=== PATIENT | male | born 1995 | race Caucasian/White ===

== ENCOUNTER 2018-01-21 19:14 | Inpatient (IN) | payer MEDICAID ==
[~2018-01-21] VITALS: Ht 177.8 cm; Wt 60.3 kg
[2018-01-21] MEDS ORDERED: BACITRACIN 0.9 GM PACKET OINTMENT TP ONE (21:30)
[2018-01-21 21:38] LABS: BASOPHILS % (AUTO) 0.4 % (0.0-2.0); HEMATOCRIT 45.8 % (41-53); HEMOGLOBIN 15.9 g/dL (13.5-17.5); LYMPHOCYTES # (AUTO) 2.7 K/uL (1.0-4.8); LYMPHOCYTES % (AUTO) 29.4 % (22.0-44.0); MEAN CORPUSCULAR HEMOGLOBIN 31.9 pg (26.0-34.0); MEAN CORPUSCULAR HGB CONC 34.7 G/dL (31.0-37.0); MEAN CORPUSCULAR VOLUME 92 fL (80-100); MONOCYTES # (AUTO) 0.5 K/uL (0.1-1.0); MONOCYTES % (AUTO) 5.9 % (2.0-9.0); NEUTROPHILS # (AUTO) 4.9 K/uL (1.8-7.7); NEUTROPHILS % (AUTO) 54.3 % (40.0-70.0); PLATELET COUNT (AUTO) 285 K/uL (150-450); RED BLOOD CELL COUNT(AUTO) 4.99 MIL/uL (4.50-5.90); RED CELL DISTRIBUTION WIDTH 12.5 % (11.5-14.5)
[2018-01-21] MEDS ORDERED: ZOLPIDEM TARTRATE 10 MG TABLET PO PRN (21:45)
[2018-01-21 21:46] LABS: ANION GAP 7 mmol/L (8-16); CALCIUM, TOTAL 8.9 mg/dL (8.8-10.5); CARBON DIOXIDE 27 mmol/L (22-29); CHLORIDE 103 mmol/L (98-107); CREATININE 0.75 mg/dL (0.60-1.30); GLOMERULAR FILTR. RATE CALC > 60 mL/min (>60); GLUCOSE,RANDOM 95 mg/dL (70-110); POTASSIUM 3.9 mmol/L (3.5-5.1); SODIUM SERUM 137 mmol/L (136-145); UREA NITROGEN, BLOOD 14 mg/dL (7-18)
[2018-01-21 21:52] LABS: ALANINE AMINOTRANSFERASE 40 U/L (12-78); ALBUMIN 4.4 g/dL (3.4-5.0); ALKALINE PHOSPHATASE 121 U/L (46-116); ASPARTATE AMINOTRANSFERASE 23 U/L (15-37); BILIRUBIN,TOTAL 0.9 mg/dL (0.1-1.0); TOTAL PROTEIN, SERUM 7.4 g/dL (6.4-8.2)
[2018-01-21 22:12] LABS: CHOL/HDL RATIO 3.1 (4.2-7.3); CHOLESTEROL 147 mg/dL (131-200); FREE T4 (FREE THYROXINE) 0.82 ng/dL (0.76-1.46); HDL CHOLESTEROL 47 mg/dL (40-60); LDL CHOL (CALC.) 83 mg/dL (0-130); THYROID STIMULATING HORMONE 1.17 uIU/mL (0.36-3.74); TRIGLYCERIDES 84 mg/dL (15-150)
[2018-01-22 02:50] VITALS: BP 143/92
[2018-01-22 08:06] VITALS: BP 130/88
[2018-01-22] MEDS: BACITRACIN 28.4 GM OINTMENT TP SCH ×2 (09:18→17:08)
[2018-01-22] MEDS: HALOPERIDOL 5 MG TABLET PO PRN ×2 (09:55→17:58)
[2018-01-22] MEDS: LORazepam 2 MG TABLET PO PRN ×2 (09:55→17:58)
[2018-01-22] MEDS ORDERED: MAG HYDROX/AL HYDROX/SIMETH ES 30 ML SUSPENSION UDCUP PO PRN (11:30)
[2018-01-22] MEDS ORDERED: MAGNESIUM HYDROXIDE SUSPENSION 30 ML UDCUP PO PRN (11:30)
[2018-01-22] MEDS ORDERED: PETROLATUM,WHITE 71 GM JELLY TP PRN (11:30)
[2018-01-22] MEDS ORDERED: DOCUSATE SODIUM 100 MG CAPSULE PO PRN (11:30)
[2018-01-22] MEDS ORDERED: ONDANSETRON HCL 4 MG TABLET PO PRN (11:30)
[2018-01-22] MEDS ORDERED: ALBUTEROL SULFATE HFA 90 MCG/PUFF 8 GM INHALER IH PRN (11:30)
[2018-01-22] MEDS ORDERED: LOPERAMIDE HCL 2 MG CAPSULE PO PRN (11:30)
[2018-01-22] MEDS ORDERED: ACETAMINOPHEN 325 MG TABLET PO PRN (11:30)
[2018-01-22] MEDS ORDERED: CloNIDine HCL 0.1 MG TABLET PO PRN (11:30)
[2018-01-22] MEDS: IBUPROFEN 400 MG TABLET PO PRN (14:00)
[2018-01-22 16:00] VITALS: BP 119/69
[2018-01-22] MEDS ORDERED: NICOTINE 14 MG/24 HOUR PATCH TD ONE (18:00)
[2018-01-22] MEDS: MIRTAZAPINE 15 MG TABLET PO SCH (20:45)
[2018-01-23 06:17] VITALS: BP 116/83
[2018-01-23] MEDS: BACITRACIN 28.4 GM OINTMENT TP SCH ×2 (09:41→17:16)
[2018-01-23] MEDS: NICOTINE 14 MG/24 HOUR PATCH TD SCH (09:41)
[2018-01-23 10:52] VITALS: BP 132/92
[2018-01-23] MEDS: LORazepam 2 MG TABLET PO PRN (10:53)
[2018-01-23] MEDS: HALOPERIDOL 5 MG TABLET PO PRN (10:53)
[2018-01-23 16:00] VITALS: BP 134/84
[2018-01-23] MEDS: MIRTAZAPINE 15 MG TABLET PO SCH (20:28)
[2018-01-23 20:29] VITALS: BP 127/89
[2018-01-23] MEDS: IBUPROFEN 400 MG TABLET PO PRN (20:29)
[2018-01-24 05:10] VITALS: BP 125/80
[2018-01-24] MEDS: IBUPROFEN 400 MG TABLET PO PRN ×2 (05:14→12:50)
[2018-01-24] MEDS: LORazepam 2 MG TABLET PO PRN ×4 (05:14→21:49)
[2018-01-24 08:21] VITALS: BP 127/75
[2018-01-24] MEDS: NICOTINE 14 MG/24 HOUR PATCH TD SCH ×2 (08:30→14:00)
[2018-01-24] MEDS: BACITRACIN 28.4 GM OINTMENT TP SCH ×2 (08:30→16:39)
[2018-01-24 12:50] VITALS: BP 134/73
[2018-01-24] MEDS: HALOPERIDOL 5 MG TABLET PO PRN (12:50)
[2018-01-24] MEDS: BENZOCAINE 10% 7 GM GEL TP PRN (13:28)
[2018-01-24 16:05] VITALS: BP 123/69
[2018-01-24] MEDS: MIRTAZAPINE 15 MG TABLET PO SCH (20:25)
[2018-01-25 02:06] VITALS: BP 125/89
[2018-01-25] MEDS: BENZOCAINE 10% 7 GM GEL TP PRN ×2 (02:19→11:23)
[2018-01-25] MEDS: IBUPROFEN 400 MG TABLET PO PRN (03:38)
[2018-01-25 08:45] VITALS: BP 132/72
[2018-01-25] MEDS: BACITRACIN 28.4 GM OINTMENT TP SCH (08:54)
[2018-01-25] MEDS: NICOTINE 14 MG/24 HOUR PATCH TD SCH (08:54)
[2018-01-25] MEDS: LORazepam 2 MG TABLET PO PRN (10:27)
[2018-01-25] MEDS ORDERED: MIRT15 PO (12:39)
== END 2018-01-25 14:30 | disposition home or self-care (01) | DRG 751 ==
LOC: EMS 19:15 → B3A 22:30 → B2S 23:09
PROVIDERS: ADMIT Psychiatry & Neurology Psychiatry; ATTEND Psychiatry & Neurology Psychiatry
DX: F33.2 Major depressive disorder, recurrent severe without psychotic features (principal); R45.851 Suicidal ideations; F11.20 Opioid dependence, uncomplicated; F41.0 Panic disorder [episodic paroxysmal anxiety]; F41.1 Generalized anxiety disorder; K59.00 Constipation, unspecified; F19.90 Other psychoactive substance use, unspecified, uncomplicated; Z91.5 Personal history of self-harm; Z71.51 Drug abuse counseling and surveillance of drug abuser
CPT/HCPCS: 83036; 84439; 84443; 99285; G0480

== ENCOUNTER 2018-01-29 13:29 | Emergency (ER) | payer MEDICAID ==
[~2018-01-29] VITALS: Ht 172.7 cm; Wt 59.1 kg
[~2018-01-29 13:29] MED LIST: MIRT15 PO
[2018-01-29 15:57] VITALS: BP 145/78
[2018-02-02] MEDS ORDERED: GABA-531 PO (11:24)
[2018-02-02] MEDS ORDERED: QUET100T PO (11:24)
== END 2018-01-29 16:05 | disposition home or self-care (01) ==
LOC: EMS 13:33
DX: K08.89 Other specified disorders of teeth and supporting structures (principal); J36 Peritonsillar abscess; F32.9 Major depressive disorder, single episode, unspecified; G83.9 Paralytic syndrome, unspecified; Z79.899 Other long term (current) drug therapy
CPT/HCPCS: 99283